=== PATIENT | male | born 1980 | race Two or more races ===

== ENCOUNTER 2017-07-09 14:09 | Inpatient (IN) | payer MEDICAID, OTHER ==
[~2017-07-09] VITALS: Ht 182.9 cm; Wt 65.7 kg
[2017-07-09 14:52] LABS: EOSINOPHILS % (AUTO) 1.9 % (1.0-6.0); HEMATOCRIT 37.4 % (41-53); HEMOGLOBIN 12.3 g/dL (13.5-17.5); LYMPHOCYTES # (AUTO) 2.1 K/uL (1.0-4.8); LYMPHOCYTES % (AUTO) 28.2 % (22.0-44.0); MEAN CORPUSCULAR HEMOGLOBIN 23.9 pg (26.0-34.0); MEAN CORPUSCULAR VOLUME 72 fL (80-100); MONOCYTES # (AUTO) 0.5 K/uL (0.1-1.0); MONOCYTES % (AUTO) 6.4 % (2.0-9.0); NEUTROPHILS # (AUTO) 4.7 K/uL (1.8-7.7); NEUTROPHILS % (AUTO) 62.5 % (40.0-70.0); PLATELET COUNT (AUTO) 263 K/uL (150-450); RED BLOOD CELL COUNT(AUTO) 5.17 MIL/uL (4.50-5.90); RED CELL DISTRIBUTION WIDTH 15.3 % (11.5-14.5)
[2017-07-09 14:54] LABS: ANION GAP 8 mmol/L (8-16); CALCIUM, TOTAL 8.4 mg/dL (8.8-10.5); CARBON DIOXIDE 28 mmol/L (22-29); CHLORIDE 105 mmol/L (98-107); CREATININE 1.22 mg/dL (0.60-1.30); GLOMERULAR FILTR. RATE CALC > 60 mL/min (>60); GLUCOSE,RANDOM 112 mg/dL (70-110); POTASSIUM 3.9 mmol/L (3.5-5.1); SODIUM SERUM 141 mmol/L (136-145); UREA NITROGEN, BLOOD 29 mg/dL (7-18)
[2017-07-09 15:00] LABS: ALANINE AMINOTRANSFERASE 31 U/L (12-78); ALBUMIN 3.9 g/dL (3.4-5.0); ALKALINE PHOSPHATASE 76 U/L (46-116); ASPARTATE AMINOTRANSFERASE 18 U/L (15-37); BILIRUBIN,TOTAL 0.5 mg/dL (0.1-1.0); TOTAL PROTEIN, SERUM 7.3 g/dL (6.4-8.2)
[2017-07-09 16:50] LABS: AMPHET/METH SCREEN,URINE POSITIVE (NEGATIVE); BARBITURATE SCREEN, URINE NEGATIVE (NEGATIVE); BENZODIAZEPINES SCREEN,URINE NEGATIVE (NEGATIVE); CANNABINOID SCREEN,URINE POSITIVE (NEGATIVE); COCAINE SCREEN,URINE POSITIVE (NEGATIVE); METHADONE SCREEN, URINE NEGATIVE (NEGATIVE); OPIATE SCREEN,URINE NEGATIVE (NEGATIVE); PHENCYCLIDINE SCREEN,URINE NEGATIVE (NEGATIVE)
[2017-07-09] MEDS ORDERED: HALOPERIDOL 5 MG TABLET PO PRN (17:45)
[2017-07-09] MEDS: LORazepam 2 MG TABLET PO PRN (18:13)
[2017-07-09 19:38] VITALS: BP 140/94
[2017-07-10 05:25] VITALS: BP 137/86
[2017-07-10] MEDS: LORazepam 2 MG TABLET PO PRN ×3 (05:41→14:07)
[2017-07-10 07:36] LABS: CHOL/HDL RATIO 2.2 (4.2-7.3)
[2017-07-10 09:15] VITALS: BP 117/73
[2017-07-10] MEDS: PARoxetine HCL 20 MG TABLET PO SCH (14:07)
[2017-07-10 18:31] VITALS: BP 141/78
[2017-07-10] MEDS: ZOLPIDEM TARTRATE 10 MG TABLET PO PRN (23:19)
[2017-07-11] MEDS: LORazepam 2 MG TABLET PO PRN ×4 (03:02→20:55)
[2017-07-11] MEDS: PARoxetine HCL 20 MG TABLET PO SCH (08:03)
[2017-07-11 09:00] VITALS: BP 123/74
[2017-07-11 17:14] VITALS: BP 112/65
[2017-07-11] MEDS: ZOLPIDEM TARTRATE 10 MG TABLET PO PRN (20:55)
[2017-07-12 02:50] VITALS: BP 112/89
[2017-07-12] MEDS ORDERED: PARO20TA24 PO (07:57)
[2017-07-12 08:30] VITALS: BP 118/69
[2017-07-12] MEDS: PARoxetine HCL 20 MG TABLET PO SCH (09:15)
[2017-07-12] MEDS: LORazepam 2 MG TABLET PO PRN (09:15)
== END 2017-07-12 10:31 | disposition home or self-care (01) | DRG 751 ==
LOC: EMS 14:11 → 3EI 18:09
PROVIDERS: ADMIT Psychiatry & Neurology Child & Adolescent Psychiatry; ATTEND Psychiatry & Neurology Child & Adolescent Psychiatry
DX: F33.2 Major depressive disorder, recurrent severe without psychotic features (principal); R45.851 Suicidal ideations; F14.20 Cocaine dependence, uncomplicated; D50.9 Iron deficiency anemia, unspecified; F15.10 Other stimulant abuse, uncomplicated; F17.200 Nicotine dependence, unspecified, uncomplicated; F12.10 Cannabis abuse, uncomplicated; Z82.49 Family history of ischemic heart disease and other diseases of the circulatory system; Z91.5 Personal history of self-harm
CPT/HCPCS: 99285; G0480

== ENCOUNTER 2024-08-04 08:06 | Emergency (ER) | payer MEDICAID, OTHER ==
[~2024-08-04] VITALS: Ht 182.9 cm; Wt 81.8 kg
[~2024-08-04 08:06] MED LIST: FLUO-177 PO; OLAN5TAB52 PO
[2024-08-04] MEDS ORDERED: MORPHINE SULFATE 2 MG/ML SYRINGE IVP ONE (08:30)
[2024-08-04 08:41] VITALS: PULSE 61; TEMP 97.7
[2024-08-04] MEDS: KETOROLAC TROMETHAMINE 30 MG/ML VIAL IVP ONE (08:50)
[2024-08-04] MEDS: FAMOTIDINE 20 MG/2 ML VIAL IVP ONE (08:50)
[2024-08-04] MEDS: SODIUM CHLORIDE 0.9% 1,000 ML IV ONE (08:50)
[2024-08-04 08:52] LABS: BASOPHILS % (AUTO) 0.4 % (0.0-2.0); EOSINOPHILS % (AUTO) 0 % (1.0-6.0); HEMATOCRIT 41.5 % (41-53); HEMOGLOBIN 13.4 g/dL (13.5-17.5); LYMPHOCYTES # (AUTO) 0.8 K/uL (1.0-4.8); LYMPHOCYTES % (AUTO) 8.3 % (22.0-44.0); MEAN CORPUSCULAR HEMOGLOBIN 23.1 pg (26.0-34.0); MEAN CORPUSCULAR HGB CONC 32.3 G/dL (31.0-37.0); MEAN CORPUSCULAR VOLUME 72 fL (80-100); MONOCYTES # (AUTO) 0.4 K/uL (0.1-1.0); MONOCYTES % (AUTO) 4.3 % (2.0-9.0); NEUTROPHILS # (AUTO) 7.9 K/uL (1.8-7.7); PLATELET COUNT (AUTO) 300 K/uL (150-450); RED CELL DISTRIBUTION WIDTH 15.7 % (11.5-14.5); WHITE BLOOD COUNT (AUTO) 9.1 K/uL (4.5-11.0)
[2024-08-04] MEDS ORDERED: SODIUM CHLORIDE 0.9% 100 ML ONE (08:53)
[2024-08-04] MEDS ORDERED: IOHEXOL 350 MG/ML 100 ML VIAL ONE (08:53)
[2024-08-04 09:02] LABS: ANION GAP 4 mmol/L (8-16); CALCIUM, TOTAL 8.6 mg/dL (8.8-10.5); CARBON DIOXIDE 29 mmol/L (22-29); CHLORIDE 100 mmol/L (98-107); CREATININE 0.86 mg/dL (0.60-1.30); GLOMERULAR FILTR. RATE CALC > 60 mL/min (>60); GLUCOSE,RANDOM 113 mg/dL (70-110); POTASSIUM 3.5 mmol/L (3.5-5.1); SODIUM SERUM 133 mmol/L (136-145); UREA NITROGEN, BLOOD 19 mg/dL (7-18)
[2024-08-04 09:06] LABS: ALBUMIN 3.8 g/dL (3.4-5.0); BILIRUBIN,DIRECT 0.3 mg/dL (0.00-0.20); BILIRUBIN,TOTAL 1.3 mg/dL (0.1-1.0); TOTAL PROTEIN, SERUM 7.3 g/dL (6.4-8.2)
[2024-08-04 09:09] LABS: ALCOHOL, BLOOD (SERUM) < 3 mg/dL (0-10); CREATINE KINASE, TOTAL ONLY 198 U/L (39-308)
[2024-08-04 09:13] LABS: RBC MORPHOLOGY COMMENT ABNORMAL RBC MORPH
[2024-08-04 10:25] VITALS: BP 135/80; RESP 20; O2SAT 97
[2024-08-04] MEDS ORDERED: ONDA-104 PO (11:00)
[2024-08-04] MEDS ORDERED: DIPH-1243 PO (11:00)
[2024-08-04] MEDS ORDERED: ACET-3385 PO (11:00)
[2024-08-04 11:18] LABS: APPEARANCE,URINE CLEAR (CLEAR); BILIRUBIN,URINE NEGATIVE (NEGATIVE); COLOR,URINE LIGHT YELLOW (YELLOW); GLUCOSE, URINE (UA) NEGATIVE (NEGATIVE); KETONES,URINE NEGATIVE (NEGATIVE); LEUKOCYTE ESTERASE ,URINE NEGATIVE (NEGATIVE); NITRATE,URINE NEGATIVE (NEGATIVE); OCCULT BLOOD,URINE NEGATIVE (NEGATIVE); PROTEIN,URINE NEGATIVE (NEGATIVE)
[2024-08-04 11:19] LABS: SPECIFIC GRAVITIY, URINE > 1.030 (1.003-1.030)
[2024-08-04 11:25] LABS: ALCOHOL, URINE DRUG SCREEN NEGATIVE (NEGATIVE); AMPHET/METH SCREEN,URINE NEGATIVE (NEGATIVE); BARBITURATE SCREEN, URINE NEGATIVE (NEGATIVE); BENZODIAZEPINES SCREEN,URINE NEGATIVE (NEGATIVE); CANNABINOID SCREEN,URINE NEGATIVE (NEGATIVE); COCAINE SCREEN,URINE NEGATIVE (NEGATIVE); METHADONE SCREEN, URINE NEGATIVE (NEGATIVE); OPIATE SCREEN,URINE NEGATIVE (NEGATIVE); PHENCYCLIDINE SCREEN,URINE NEGATIVE (NEGATIVE)
== END 2024-08-04 13:37 | disposition home or self-care (01) ==
LOC: EMS 08:11
DX: R11.2 Nausea with vomiting, unspecified (principal); R10.31 Right lower quadrant pain; R10.32 Left lower quadrant pain; F32.A Depression, unspecified; F17.210 Nicotine dependence, cigarettes, uncomplicated; Z79.899 Other long term (current) drug therapy
CPT/HCPCS: 99285; 74177; 96374; 96375; 80048; 80076; 81003; 82550; 83690; 85025; 36415; 80307; J1885; G0480; Q9967; J3490; J7030; J7050; J2270